=== PATIENT | female | born 1990 ===

== ENCOUNTER 2021-10-23 11:15 | Inpatient (IN) | payer OTHER ==
[2021-10-23] MEDS ORDERED: LACTATED RINGERS SOLUTION 1,000 ML IV SCH ×2 (12:50→13:50)
[2021-10-23 14:48] VITALS: BMI 27.9
[2021-10-23 15:01] LABS: BASO % 0.3 % (0-2.0); EOS % 0.6 % (0-4.5); HEMATOCRIT 33.3 % (32.4-45.2); LYMPH % 11.7 % (8-40); MCH 29.5 pg (25.7-33.7); MCHC 32.9 g/dl (32.0-36.0); MEAN CELL VOLUME 89.4 fl (80-96); MEAN PLT VOLUME 8.7 fl (7.5-11.1); MONO % 6.3 % (3.8-10.2); NEUT % 81.1 % (42.8-82.8); PLATELET COUNT 238 10^3/uL (134-434); RBC 3.72 M/mm3 (3.60-5.2); RDW 13.4 % (11.6-15.6); WHITE BLOOD COUNT 8.9 K/mm3 (4.0-10.0)
[2021-10-23 15:08] LABS: INR 0.92 (0.83-1.09); PROTHROMBIN TIME (PATIENT) 10.6 SEC (9.7-13.0)
[2021-10-23 15:11] LABS: ACTIVATED PTT 28.4 SECONDS (25.2-36.5)
[2021-10-23 15:19] LABS: CALCIUM 8.9 mg/dL (8.5-10.1)
[2021-10-23 15:20] LABS: BLOOD UREA NITROGEN 8.9 mg/dL (7-18)
[2021-10-23 15:23] LABS: CREATININE 0.5 mg/dL (0.55-1.3)
[2021-10-23 15:47] LABS: METHADONE, UR NEGATIVE (NEGATIVE); PHENCYCLIDINE,URINE NEGATIVE (NEGATIVE); URINE BARBITURATES NEGATIVE (NEGATIVE); URINE BENZODIAZEPINES NEGATIVE (NEGATIVE)
[2021-10-23 15:48] LABS: COCAINE, UR NEGATIVE (NEGATIVE); OPIATES, URI NEGATIVE (NEGATIVE); URINE AMPHETAMINES NEGATIVE (NEGATIVE)
[2021-10-23] MEDS ORDERED: AMPICILLIN - 2 GM in SODIUM CHLORIDE 100 ML IVPB ONE (16:30)
[2021-10-23] MEDS ORDERED: AMPICILLIN SODIUM 2 GM VIAL ONE (16:33)
[2021-10-23] MEDS ORDERED: PROMETHAZINE HCL 25 MG/1 ML VIAL IVPUSH ONE (17:29)
[2021-10-23] MEDS ORDERED: BUTORPHANOL TARTRATE 1 MG/ML VIAL IVPUSH ONE (17:29)
[2021-10-23] MEDS: AMPICILLIN - 1 GM in SODIUM CHLORIDE 100 ML IVPB SCH (20:30)
[2021-10-23] MEDS ORDERED: AMPICILLIN SODIUM 1 GM VIAL ONE (20:44)
[2021-10-23] MEDS ORDERED: BUTORPHANOL TARTRATE 2 MG/ML VIAL ONE (22:16)
[2021-10-23] MEDS ORDERED: PROMETHAZINE HCL 25 MG/1 ML VIAL ONE (22:17)
[2021-10-24] MEDS: AMPICILLIN - 1 GM in SODIUM CHLORIDE 100 ML IVPB SCH ×5 (00:30→18:43)
[2021-10-24] MEDS ORDERED: AMPICILLIN SODIUM 1 GM VIAL ONE ×4 (00:56→12:51)
[2021-10-24] MEDS: DEXTROSE 5%-LACTATED RINGERS 1,000 ML IV SCH ×2 (05:30→09:54)
[2021-10-24] MEDS ORDERED: ELECTROLYTE-148 SOLN 1,000 ML IV SCH (12:00)
[2021-10-24] MEDS ORDERED: OXYTOCIN 30 UNITS in 0.9% NS 30 UNIT/500 ML INFUS.BAG IVPB SCH (12:00)
[2021-10-24] MEDS ORDERED: FENTANYL/BUPIVACAINE/NS/PF - PCEA - 50 ML DISP.SYRIN EP SCH (12:00)
[2021-10-24] MEDS ORDERED: NALOXONE HCL 0.4 MG/ML VIAL IVPUSH PRN (12:00)
[2021-10-24] MEDS ORDERED: LIDOCAINE HCL 1% PRESERVATIVE FREE - 30ML VIAL ONE (12:02)
[2021-10-24] MEDS ORDERED: BUPIVACAINE HCL/PF 0.25% (2.5MG/ML) 10 ML VIAL ONE (12:02)
[2021-10-24] MEDS ORDERED: LIDOCAINE HCL/EPINEPHRINE/PF 20 ML VIAL ONE (12:02)
[2021-10-24] MEDS ORDERED: FENTANYL/BUPIVACAINE/NS/PF - PCEA - 50 ML DISP.SYRIN EP ONE (12:03)
[2021-10-24] MEDS ORDERED: OXYTOCIN 30 UNITS in 0.9% NS 30 UNIT/500 ML INFUS.BAG IVPB ONE (13:34)
[2021-10-24] MEDS ORDERED: CITRIC ACID/SODIUM CITRATE 30 ML UNIT-DOSE CUP PO ONE (16:18)
[2021-10-24] MEDS ORDERED: SODIUM CHLORIDE 0.9% P/F 10 ML VIAL IJ ONE (16:24)
[2021-10-24] MEDS ORDERED: SODIUM BICARBONATE 8.4% 50 MEQ/50 ML VIAL ONE (16:24)
[2021-10-24] MEDS ORDERED: ceFAZolin SODIUM 1 GM VIAL ONE (16:24)
[2021-10-24] MEDS ORDERED: OXYTOCIN 10 UNITS/ML VIAL ONE ×2 (16:39→16:47)
[2021-10-24] MEDS ORDERED: KETOROLAC TROMETHAMINE 30 MG/1 ML VIAL ONE (16:52)
[2021-10-24] MEDS ORDERED: MIDAZOLAM HCL 2 MG/2 ML SINGLE DOSE VIAL ONE (16:52)
[2021-10-24] MEDS ORDERED: morphine SULFATE/PF 1 MG/2 ML (2cc Syringe - QUVA) ONE ×2 (16:53→16:54)
[2021-10-24] MEDS ORDERED: METHYLERGONOVINE MALEATE 0.2 MG/1 ML AMP IM PRN (17:20)
[2021-10-24] MEDS ORDERED: ACETAMINOPHEN 325 MG TABLET (FP) PO PRN (17:20)
[2021-10-24 17:21] LABS: CORD BASE EXCESS -2.9 mmol/L (0-2); CORD HCO3 23.2 mmHg (20-29); CORD PCO2 45.3 mmHg (30-78); CORD pH 7.328 (7.14-7.44)
[2021-10-24 17:22] LABS: CORD BASE EXCESS -3.2 mmol/L (0-2); CORD HCO3 25.9 mmHg (20-29); CORD PCO2 65.4 mmHg (30-78); CORD pH 7.215 (7.14-7.44)
[2021-10-24] MEDS ORDERED: IBUPROFEN 800 MG/8 ML IJ IVPB PRN (17:22)
[2021-10-24] MEDS ORDERED: ONDANSETRON 4 MG/2 ML VIAL IVPUSH PRN (17:32)
[2021-10-24] MEDS: OXYTOCIN 20 UNITS in 0.9% NS 20 UNIT/1,000 ML INFUS.BAG IV SCH (18:00)
[2021-10-24] MEDS ORDERED: OXYTOCIN 20 UNITS in 0.9% NS 20 UNIT/1,000 ML INFUS.BAG IV ONE (18:07)
[2021-10-25] MEDS ORDERED: ceFAZolin SODIUM 1 GM VIAL ONE ×3 (00:12→16:38)
[2021-10-25] MEDS ORDERED: DEXTROSE 5%-WATER - 50 ML IVPB ONE ×3 (00:12→16:38)
[2021-10-25] MEDS: CEFAZOLIN 1 GM in DEXTROSE 5%-WATER - 1 GM/50 ML IVPB IVPB SCH ×3 (00:23→16:51)
[2021-10-25] MEDS ORDERED: oxyCODONE HCL 5 MG TABLET PO PRN ×2 (05:20)
[2021-10-25 08:53] LABS: BASO % 0.2 % (0-2.0); EOS % 0.2 % (0-4.5); HEMOGLOBIN 7.9 GM/dL (10.7-15.3); LYMPH % 12.8 % (8-40); MCH 29.9 pg (25.7-33.7); MCHC 32.9 g/dl (32.0-36.0); MEAN CELL VOLUME 91.1 fl (80-96); MEAN PLT VOLUME 8.9 fl (7.5-11.1); MONO % 6.2 % (3.8-10.2); NEUT % 80.6 % (42.8-82.8); PLATELET COUNT 177 10^3/uL (134-434); RBC 2.63 M/mm3 (3.60-5.2); RDW 13.9 % (11.6-15.6); WHITE BLOOD COUNT 9.9 K/mm3 (4.0-10.0)
[2021-10-25] MEDS ORDERED: ENOXAPARIN NA (PORCINE) 40 MG/0.4 ML DISP.SYRIN SQ SCH (10:00)
[2021-10-25] MEDS ORDERED: IRON SUCROSE INJECTION 200 MG in SODIUM CHLORIDE 90 ML IVPB ONE (11:30)
[2021-10-25] MEDS: IBUPROFEN 600 MG TABLET (FP) PO PRN (15:57)
[2021-10-25] MEDS: SIMETHICONE 80 MG TAB.CHEW (FP) PO PRN (16:00)
[2021-10-25] MEDS ORDERED: BISACODYL 10 MG SUPP.RECT RC PRN (17:20)
[2021-10-26] MEDS: SIMETHICONE 80 MG TAB.CHEW (FP) PO PRN ×3 (06:16→22:18)
[2021-10-26] MEDS: IBUPROFEN 600 MG TABLET (FP) PO PRN ×3 (06:18→22:18)
[2021-10-26] MEDS ORDERED: FLU VACC QS2021-22(6MOS UP)/PF 60 MCG/0.5 ML SYRINGE IM ONE (10:00)
[2021-10-26] MEDS: PRENATAL VITAMINS W/ FOLIC ACID TABLET (FP) PO SCH (10:07)
[2021-10-26 21:48] VITALS: TEMP 97.5
[2021-10-27] MEDS: DEXTROSE 5%-LACTATED RINGERS 1,000 ML IV SCH ×3 (02:13→03:08)
[2021-10-27] MEDS: OXYTOCIN 20 UNITS in 0.9% NS 20 UNIT/1,000 ML INFUS.BAG IV SCH (02:14)
[2021-10-27] MEDS: SIMETHICONE 80 MG TAB.CHEW (FP) PO PRN (08:25)
[2021-10-27] MEDS: IBUPROFEN 600 MG TABLET (FP) PO PRN (08:25)
[2021-10-27 09:39] LABS: BASO % 0.3 % (0-2.0); EOS % 1.3 % (0-4.5); HEMATOCRIT 27.6 % (32.4-45.2); HEMOGLOBIN 9.1 GM/dL (10.7-15.3); LYMPH % 10.1 % (8-40); MCH 29.9 pg (25.7-33.7); MEAN CELL VOLUME 90.5 fl (80-96); MEAN PLT VOLUME 8.4 fl (7.5-11.1); NEUT % 83.3 % (42.8-82.8); PLATELET COUNT 208 10^3/uL (134-434); RBC 3.05 M/mm3 (3.60-5.2); RDW 13.5 % (11.6-15.6); WHITE BLOOD COUNT 9.7 K/mm3 (4.0-10.0)
[2021-10-27] MEDS: PRENATAL VITAMINS W/ FOLIC ACID TABLET (FP) PO SCH (10:59)
[2021-10-27 11:28] VITALS: BP 113/66; PULSE 77
== END 2021-10-27 13:40 | disposition home or self-care (01) | DRG 540 ==
LOC: JDEL 11:15 → JLDR 14:15 → J3W 10-24 20:12
PROVIDERS: ADMIT Obstetrics & Gynecology; ATTEND Obstetrics & Gynecology
PROC: 10D00Z1 Extraction of Products of Conception, Low, Open Approach (ICD-10-PCS; principal; 2021-10-24)
DX: O48.0 Post-term pregnancy (principal); Z3A.40 40 weeks gestation of pregnancy; Z37.0 Single live birth; O76 Abnormality in fetal heart rate and rhythm complicating labor and delivery; O77.0 Labor and delivery complicated by meconium in amniotic fluid; O62.0 Primary inadequate contractions
CPT/HCPCS: 36415; 36600; 59025; 71045-TC-FY; 80048; 80307; 82803; 85025; 85610; 85730; 86780; 86850; 86900; 86901; 88307-TC; 90686; C9803-CS; G0008; J1756; U0003; U0005